=== PATIENT | female | born 1980 | race Caucasian/White ===

== ENCOUNTER → 2018-05-15 | Outpatient (CLI) | payer BC ==
[2018-05-15 15:45] LABS: EOS # 0.1 (0.04-0.40); EOS % 1.2 % (1.0-5.0); HEMATOCRIT 44.4 % (37.0-47.0); HEMOGLOBIN 15.2 g/dL (12.5-16.0); LYMPH# 2.4 (1.50-4.00); MEAN CELL VOLUME 92 fl (78-100); MEAN CORPUSCULAR HEMOGLOBIN 32 pg (27-31); MEAN CORPUSCULAR HGB CONC 34 g/dL (33-37); MEAN PLATELET VOLUME 8.7 fl (7.4-10.4); MONO # 0.7 (0.20-0.80); NEU # 3.6 (1.40-6.50); PLATELET COUNT 354 K/mm3 (130-400); RED BLOOD COUNT 4.82 M/mm3 (4.10-5.30); RED CELL DISTRIBUTION WIDTH 12.2 % (11.5-14.5); WHITE BLOOD COUNT 6.8 K/mm3 (4.8-10.8)
[2018-05-15 16:42] LABS: ALBUMIN 4.8 g/dL (3.5-5.0); CALCIUM 9.5 mg/dL (8.4-10.2); POTASSIUM 3.8 mmol/L (3.6-5.0); TOTAL BILIRUBIN 1.3 mg/dL (0.2-1.3)
== END ==
LOC: LAB 15:06
PROVIDERS: Family Medicine
DX: Z01.419 Encounter for gynecological examination (general) (routine) without abnormal findings (principal); E03.9 Hypothyroidism, unspecified; D50.9 Iron deficiency anemia, unspecified; E55.9 Vitamin D deficiency, unspecified

== ENCOUNTER → 2020-03-16 | Outpatient (CLI) | payer BC ==
[2020-03-16 11:19] LABS: BASO # 0.1 (0.02-0.10); EOS # 0.1 (0.04-0.40); EOS % 1.9 % (1.0-5.0); HEMATOCRIT 41.9 % (37.0-47.0); HEMOGLOBIN 13.9 g/dL (12.5-16.0); LYMPH# 1.7 (1.50-4.00); MEAN CELL VOLUME 92 fl (78-100); MEAN CORPUSCULAR HEMOGLOBIN 31 pg (27-31); MEAN CORPUSCULAR HGB CONC 33 g/dL (33-37); MEAN PLATELET VOLUME 8.6 fl (7.4-10.4); MONO # 0.3 (0.20-0.80); PLATELET COUNT 336 K/mm3 (130-400); RED BLOOD COUNT 4.54 M/mm3 (4.10-5.30); RED CELL DISTRIBUTION WIDTH 12.2 % (11.5-14.5); WHITE BLOOD COUNT 4.1 K/mm3 (4.8-10.8)
[2020-03-16 11:32] LABS: ALBUMIN 4.4 g/dL (3.5-5.0); POTASSIUM 3.9 mmol/L (3.5-5.1)
[2020-03-16 11:33] LABS: CALCIUM 9.3 mg/dL (8.3-10.5)
[2020-03-16 11:34] LABS: TOTAL PROTEIN 7.5 g/dL (6.4-8.3)
[2020-03-18 05:16] LABS: BAKERS YEAST ALLERGEN COUNT <0.10 kU/L (()); CORN ALLERGEN COUNT <0.10 kU/L (()); EGG WHITE ALLERGEN COUNT <0.10 kU/L (()); ORANGE ALLERGEN COUNT <0.10 kU/L (()); PEANUT ALLERGEN COUNT <0.10 kU/L (()); SOYBEAN ALLERGEN COUNT <0.10 kU/L (()); STRAWBERRY ALLERGEN COUNT <0.10 kU/L (()); TOMATO ALLERGEN COUNT <0.10 kU/L (()); WHEAT ALLERGEN COUNT <0.10 kU/L (())
[2020-03-18 05:17] LABS: MILK ALLERGEN COUNT 0.11 kU/L (()); RICE ALLERGEN COUNT <0.10 kU/L (())
== END ==
LOC: LAB 11:03
PROVIDERS: Family Medicine
DX: Z00.00 Encounter for general adult medical examination without abnormal findings (principal); K21.9 Gastro-esophageal reflux disease without esophagitis; E78.5 Hyperlipidemia, unspecified

== ENCOUNTER → 2020-08-30 | Outpatient (CLI) | payer BC | LOC: LAB 12:35 | DX: Z01.89 Encounter for other specified special examinations (principal) ==

== ENCOUNTER 2021-01-18 16:01 | Emergency (ER) | payer BC ==
[2021-01-18] MEDS ORDERED: PROAIR HFA0.09 MG/AC IH (16:21)
[2021-01-18] MEDS ORDERED: XANAX0.5 M1 PO (16:22)
[2021-01-18] MEDS ORDERED: ONDANSETRON ODT8 MG PO (18:48)
[2021-01-18 19:01] VITALS: BP 126/79
== END 2021-01-18 19:01 | disposition home or self-care (01) ==
LOC: ED 16:01
DX: F07.81 Postconcussional syndrome (principal); R11.0 Nausea; D68.51 Activated protein C resistance; W01.0XXA Fall on same level from slipping, tripping and stumbling without subsequent striking against object, initial encounter
CPT/HCPCS: J1885

== ENCOUNTER → 2021-05-13 | Outpatient (CLI) | payer BC ==
[~2021-05-13] MED LIST: ONDANSETRON ODT8 MG PO; PROAIR HFA0.09 MG/AC IH; XANAX0.5 M1 PO
[2021-05-13 16:24] LABS: BASO # 0.04 (0.02-0.10); EOS # 0.08 (0.04-0.40); EOS % 1.5 % (1.0-5.0); HEMATOCRIT 41.1 % (37.0-47.0); HEMOGLOBIN 13.8 g/dL (12.5-16.0); LYMPH# 1.99 (1.50-4.00); MEAN CELL VOLUME 95 fl (78-100); MEAN CORPUSCULAR HEMOGLOBIN 32 pg (27-31); MEAN CORPUSCULAR HGB CONC 34 g/dL (33-37); MEAN PLATELET VOLUME 8.9 fl (7.4-10.4); MONO # 0.41 (0.20-0.80); NEU # 2.88 (1.40-6.50); PLATELET COUNT 316 K/mm3 (130-400); RED BLOOD COUNT 4.34 M/mm3 (4.10-5.30); RED CELL DISTRIBUTION WIDTH 11.7 % (11.5-14.5); WHITE BLOOD COUNT 5.4 K/mm3 (4.8-10.8)
[2021-05-13 16:25] LABS: ALBUMIN 4.2 g/dL (3.5-5.0)
[2021-05-13 16:27] LABS: CALCIUM 9.5 mg/dL (8.3-10.5)
[2021-05-13 16:28] LABS: TOTAL PROTEIN 7.1 g/dL (6.4-8.3)
[2021-05-13 16:30] LABS: TOTAL BILIRUBIN 1.1 mg/dL (0.2-1.2)
[2021-05-13 17:36] LABS: ERYTHROCYTE SEDIMENTATION RATE 6 mm/hr (0-20)
== END ==
LOC: LAB 15:56
PROVIDERS: Family Medicine
DX: R19.5 Other fecal abnormalities (principal); Z90.49 Acquired absence of other specified parts of digestive tract; Z80.1 Family history of malignant neoplasm of trachea, bronchus and lung

== ENCOUNTER → 2021-11-04 | Outpatient (CLI) | payer BC ==
[2021-11-04 14:48] LABS: BASO # 0.03 K/mm3 (0.02-0.10); EOS # 0.07 K/mm3 (0.04-0.40); EOS % 1.4 % (1.0-5.0); HEMATOCRIT 41.3 % (37.0-47.0); HEMOGLOBIN 14.2 g/dL (12.5-16.0); LYMPH# 1.68 K/mm3 (1.50-4.00); MEAN CELL VOLUME 93 fl (78-100); MEAN CORPUSCULAR HEMOGLOBIN 32 pg (27-31); MEAN CORPUSCULAR HGB CONC 34 g/dL (33-37); PLATELET COUNT 356 K/mm3 (130-400); RED BLOOD COUNT 4.46 M/mm3 (4.10-5.30); RED CELL DISTRIBUTION WIDTH 11.7 % (11.5-14.5)
[2021-11-04 15:12] LABS: ALBUMIN 4.6 g/dL (3.5-5.0)
[2021-11-04 15:13] LABS: CALCIUM 9.7 mg/dL (8.3-10.5)
[2021-11-04 15:14] LABS: TOTAL PROTEIN 7.5 g/dL (6.4-8.3)
[2021-11-04 15:16] LABS: TOTAL BILIRUBIN 0.9 mg/dL (0.2-1.2)
== END ==
LOC: LAB 14:26
PROVIDERS: Family Medicine
DX: Z00.00 Encounter for general adult medical examination without abnormal findings (principal); E78.5 Hyperlipidemia, unspecified; K21.9 Gastro-esophageal reflux disease without esophagitis; F41.9 Anxiety disorder, unspecified; J45.909 Unspecified asthma, uncomplicated; D68.51 Activated protein C resistance; K44.9 Diaphragmatic hernia without obstruction or gangrene; E03.9 Hypothyroidism, unspecified; D50.9 Iron deficiency anemia, unspecified; G43.909 Migraine, unspecified, not intractable, without status migrainosus; E66.9 Obesity, unspecified; E55.9 Vitamin D deficiency, unspecified; E53.9 Vitamin B deficiency, unspecified; J30.2 Other seasonal allergic rhinitis; M79.671 Pain in right foot; R22.0 Localized swelling, mass and lump, head

== ENCOUNTER → 2021-11-08 | Outpatient (CLI) | payer BC | LOC: RAD 12:56 | DX: M79.671 Pain in right foot (principal); R22.0 Localized swelling, mass and lump, head ==

== ENCOUNTER → 2021-11-17 | Outpatient (CLI) | payer BC ==
[2021-11-19 07:08] LABS: ALTERNARIA TENUIS CNT <0.10 kU/L (()); ASPERGILLUS FUMIGATUS AL COUNT <0.10 kU/L (()); BERMUDA GRASS ALLERGEN COUNT <0.10 kU/L (()); BOX ELDER-MAPLE ALLERGEN COUNT <0.10 kU/L (()); CAT DANDER ALLERGEN COUNT <0.10 kU/L (()); CLADOSPORIUM ALLERGEN COUNT <0.10 kU/L (()); COCKROACH ALLERGEN COUNT <0.10 kU/L (()); COTTONWOOD TREE ALLERGEN COUNT <0.10 kU/L (()); DOG DANDER ALLERGEN COUNT <0.10 kU/L (()); DUST MITES (D.F.) ALLERG COUNT <0.10 kU/L (()); DUST MITES (D.P.) ALLERG COUNT <0.10 kU/L (()); ELM TREE ALLERGEN COUNT <0.10 kU/L (()); FIREBUSH ALLERGEN COUNT <0.10 kU/L (()); OAK ALLERGEN COUNT <0.10 kU/L (()); ROUGH MARSH ELDER ALLERG COUNT <0.10 kU/L (()); RUSSIAN THISTLE ALLERGEN COUNT <0.10 kU/L (()); SHORT RAGWEED ALLERGEN COUNT <0.10 kU/L (())
== END ==
LOC: LAB 11:02
PROVIDERS: Family Medicine
DX: J30.2 Other seasonal allergic rhinitis (principal)

== ENCOUNTER → 2022-04-19 | Outpatient (CLI) | payer BC | LOC: AMSURD 08:53 | DX: Z01.89 Encounter for other specified special examinations (principal) ==

== ENCOUNTER → 2023-12-11 | Outpatient (CLI) | payer BC ==
[2023-12-11 16:00] LABS: BASO # 0.04 K/mm3 (0.02-0.10); EOS # 0.05 K/mm3 (0.04-0.40); EOS % 0.8 % (1.0-5.0); HEMATOCRIT 39.5 % (37.0-47.0); HEMOGLOBIN 13.2 g/dL (12.5-16.0); LYMPH# 1.97 K/mm3 (1.50-4.00); MEAN CELL VOLUME 94 fl (78-100); MEAN CORPUSCULAR HEMOGLOBIN 31 pg (27-31); MEAN CORPUSCULAR HGB CONC 33 g/dL (33-37); MEAN PLATELET VOLUME 8.6 fl (7.4-10.4); PLATELET COUNT 320 K/mm3 (130-400); RED BLOOD COUNT 4.21 M/mm3 (4.10-5.30); RED CELL DISTRIBUTION WIDTH 11.7 % (11.5-14.5); WHITE BLOOD COUNT 6.3 K/mm3 (4.8-10.8)
[2023-12-11 16:11] LABS: ALBUMIN 4.4 g/dL (3.5-5.0)
[2023-12-11 16:12] LABS: CALCIUM 9.4 mg/dL (8.3-10.5)
[2023-12-11 16:13] LABS: TOTAL PROTEIN 6.8 g/dL (6.4-8.3)
[2023-12-11 16:15] LABS: TOTAL BILIRUBIN 1.3 mg/dL (0.2-1.2)
== END ==
LOC: LAB 15:12 → RAD 15:12
PROVIDERS: Family Medicine
DX: M47.816 Spondylosis without myelopathy or radiculopathy, lumbar region (principal); E03.9 Hypothyroidism, unspecified; D50.9 Iron deficiency anemia, unspecified; E55.9 Vitamin D deficiency, unspecified; I10 Essential (primary) hypertension

== ENCOUNTER 2024-10-04 13:32 | Emergency (ER) | payer BC ==
[~2024-10-04] VITALS: Ht 170.2 cm; Wt 70.5 kg
[2024-10-04 15:51] LABS: BASO # 0.03 K/mm3 (0.02-0.10); HEMATOCRIT 41.9 % (37.0-47.0); HEMOGLOBIN 14.6 g/dL (12.5-16.0); LYMPH# 0.63 K/mm3 (1.50-4.00); MEAN CELL VOLUME 95 fl (78-100); MEAN CORPUSCULAR HEMOGLOBIN 33 pg (27-31); MEAN CORPUSCULAR HGB CONC 35 g/dL (33-37); MEAN PLATELET VOLUME 9.1 fl (7.4-10.4); MONO # 0.38 K/mm3 (0.20-0.80); NEU # 3.82 K/mm3 (1.40-6.50); PLATELET COUNT 240 K/mm3 (130-400); RED BLOOD COUNT 4.43 M/mm3 (4.10-5.30); RED CELL DISTRIBUTION WIDTH 11.2 % (11.5-14.5); WHITE BLOOD COUNT 4.9 K/mm3 (4.8-10.8)
[2024-10-04 15:54] LABS: ALBUMIN 4.6 g/dL (3.5-5.0)
[2024-10-04 15:55] LABS: SODIUM 139 mmol/L (136-145)
[2024-10-04 15:56] LABS: CALCIUM 9.7 mg/dL (8.3-10.5)
[2024-10-04 15:57] LABS: GLUCOSE 99 mg/dL (65-105); TOTAL PROTEIN 7.7 g/dL (6.4-8.3)
[2024-10-04 15:58] LABS: CARBON DIOXIDE 23 mmol/L (22-29)
[2024-10-04 16:02] LABS: AST-SGOT 21 U/L (5-34)
[2024-10-04 16:03] LABS: ALT/SGPT 23 U/L (0-55)
[2024-10-04 16:03] LABS: URINE APPEARANCE CLEAR (CLEAR); URINE COLOR YELLOW (YELLOW)
[2024-10-04 16:04] LABS: URINE BILIRUBIN NEGATIVE (NEGATIVE); URINE BLOOD NEGATIVE (NEGATIVE); URINE GLUCOSE NEGATIVE (NEGATIVE); URINE KETONE 3+ (NEGATIVE); URINE LEUKOCYTE ESTERASE NEGATIVE (NEGATIVE); URINE NITRATE NEGATIVE (NEGATIVE); URINE PROTEIN(semi-quant) NEGATIVE (NEGATIVE); URINE WBC 0-1 /hpf (0-3)
[2024-10-04 16:59] VITALS: BP 138/72
== END 2024-10-04 16:59 | disposition home or self-care (01) ==
LOC: ED 13:32
PROVIDERS: Family Medicine
DX: R53.83 Other fatigue (principal); U09.9 Post COVID-19 condition, unspecified